=== PATIENT | female | born 1995 | race Caucasian/White ===

== ENCOUNTER 2022-05-25 08:01 | Emergency (ER) | payer SELFPAY ==
[2022-05-25 08:31] VITALS: BP 119/79; PULSE 78; RESP 18; TEMP 98.4; BMI 25.9
[2022-05-25 11:47] LABS: BASO % 0.5 % (0-2.0); EOS % 0.5 % (0-4.5); HEMATOCRIT 39.1 % (32.4-45.2); LYMPH % 30.6 % (8-40); MCH 28.9 pg (25.7-33.7); MCHC 33.4 g/dl (32.0-36.0); MEAN CELL VOLUME 86.5 fl (80-96); MEAN PLT VOLUME 7.8 fl (7.5-11.1); MONO % 7.4 % (3.8-10.2); PLATELET COUNT 280 10^3/uL (134-434); RBC 4.52 M/mm3 (3.60-5.2); RDW 14.1 % (11.6-15.6); WHITE BLOOD COUNT 6.7 K/mm3 (4.0-10.0)
[2022-05-25 12:06] LABS: CHLORIDE 108 mmol/L (98-107); SODIUM 139 mmol/L (136-145)
[2022-05-25 12:13] LABS: ANION GAP 8 MMOL/L (8-16); BLOOD UREA NITROGEN 13.5 mg/dL (7-18); CO2 23 mmol/L (21-32); GLUCOSE,RANDOM 79 mg/dL (74-106)
[2022-05-25 12:17] LABS: CREATININE 0.6 mg/dL (0.55-1.3); SGOT/AST 20 U/L (15-37); SGPT/ALT 20 U/L (13-61); TOT PROT 7.9 g/dl (6.4-8.2)
[2022-05-25 12:19] LABS: BILIRUBIN,TOTAL 0.4 mg/dL (0.2-1)
[2022-05-25 12:20] LABS: ALK PHOS 55 U/L (45-117)
[2022-05-25 12:35] LABS: SYPHILIS W/ RPR CONF NON-REACTIVE (NONREACTIVE)
[2022-05-25] MEDS ORDERED: FLUCONAZOLE 150 MG TABLET PO ONE ×2 (12:39→13:11)
[2022-05-25 13:03] LABS: HIV INTERPRETATION NEGATIVE (NEGATIVE)
[2022-05-25] MEDS ORDERED: FLUCONAZOLE 100 MG TABLET (UD) ONE (13:08)
[2022-05-25 13:23] LABS: EPI CELLS 11 /uL (0-25.1); HYALINE CASTS 1 /uL (0-3.1); PH,URINE 5.5 (5.0-8.0); URINE APPEARANCE CLEAR; URINE BACTERIA 982 /uL (0-1359); URINE BILIRUBIN NEGATIVE (NEGATIVE); URINE COLOR YELLOW; URINE GLUCOSE (UA) NEGATIVE (NEGATIVE); URINE KETONE 1+ (NEGATIVE); URINE LEUK ESTERASE 1+ (NEGATIVE); URINE NITRITE NEGATIVE (NEGATIVE); URINE PROTEIN NEGATIVE (NEGATIVE); URINE RBC 3 /uL (0-23.9); URINE UROBILINOGEN 0.2 mg/dL (0.2-1.0); URINE WBC 40 /uL (0-25.8)
[2022-05-25] MEDS ORDERED: CEPHALEXIN MONOHYDRATE 500 MG CAPSULE (UD) PO ONE (13:56)
[2022-05-25] MEDS ORDERED: CEPHALEXIN MONOHYDRATE 500 MG CAPSULE (UD) ONE (14:18)
== END 2022-05-25 14:32 | disposition home or self-care (01) ==
LOC: JER 08:01
DX: B37.3 Candidiasis of vulva and vagina (principal); N30.90 Cystitis, unspecified without hematuria
CPT/HCPCS: 36415; 80053; 81003; 84702; 85025; 86780; 86850; 86900; 86901; 87070; 87086; 87205; 87389; 87491; 87591; 99283-25

== ENCOUNTER 2022-08-27 21:22 | Emergency (ER) | payer OTHER ==
[2022-08-27 21:33] VITALS: RESP 18; TEMP 98.8; BMI 22.6
[2022-08-27] MEDS ORDERED: ACETAMINOPHEN 1000 MG/100 ML BAG IVPB ONE (22:20)
[2022-08-27] MEDS ORDERED: MAG HYDROX/AL HYDROX/SIMETH -MYLANTA- ORAL SUSPENSION PO ONE (22:20)
[2022-08-27] MEDS ORDERED: FAMOTIDINE 20 MG/50 ML IVPB 20 MG/50 ML MG IVPB ONE ×2 (22:20→22:54)
[2022-08-27] MEDS ORDERED: SUCRALFATE 1 GM TABLET (FP) PO ONE (22:20)
[2022-08-27] MEDS ORDERED: MAG HYDROX/AL HYDROX/SIMETH 30 ML UNIT-DOSE CUP ONE (22:54)
[2022-08-27] MEDS ORDERED: SUCRALFATE 1 GM TABLET (FP) ONE (22:54)
[2022-08-27] MEDS ORDERED: ACETAMINOPHEN INJECTION 100 ML IVPB ONE (22:54)
[2022-08-27 23:08] LABS: EPI CELLS 19 /uL (0-25.1); HYALINE CASTS 0 /uL (0-3.1); PH,URINE 7.5 (5.0-8.0); URINE APPEARANCE CLEAR; URINE BACTERIA 250 /uL (0-1359); URINE BILIRUBIN NEGATIVE (NEGATIVE); URINE COLOR YELLOW; URINE GLUCOSE (UA) NEGATIVE (NEGATIVE); URINE KETONE NEGATIVE (NEGATIVE); URINE LEUK ESTERASE 3+ (NEGATIVE); URINE NITRITE NEGATIVE (NEGATIVE); URINE PROTEIN NEGATIVE (NEGATIVE); URINE RBC 3 /uL (0-23.9); URINE UROBILINOGEN 0.2 mg/dL (0.2-1.0); URINE WBC 98 /uL (0-25.8)
[2022-08-27 23:11] LABS: INR 0.98 (0.83-1.09); PROTHROMBIN TIME (PATIENT) 11.3 SEC (9.7-13.0)
[2022-08-27 23:14] LABS: ACTIVATED PTT 24.7 SECONDS (25.2-36.5)
[2022-08-27 23:19] LABS: BASO % 0.3 % (0-2.0); CALCIUM 9.5 mg/dL (8.5-10.1); EOS % 0.5 % (0-4.5); HEMATOCRIT 30.8 % (32.4-45.2); HEMOGLOBIN 10.6 GM/dL (10.7-15.3); LYMPH % 26.6 % (8-40); MCH 29.1 pg (25.7-33.7); MCHC 34.3 g/dl (32.0-36.0); MEAN CELL VOLUME 84.8 fl (80-96); MEAN PLT VOLUME 7.6 fl (7.5-11.1); MONO % 8.9 % (3.8-10.2); NEUT % 63.7 % (42.8-82.8); PLATELET COUNT 250 10^3/uL (134-434); RBC 3.64 M/mm3 (3.60-5.2); RDW 14.5 % (11.6-15.6); WHITE BLOOD COUNT 9.8 K/mm3 (4.0-10.0)
[2022-08-27 23:20] LABS: ALBUMIN 3.3 g/dl (3.4-5.0)
[2022-08-27 23:23] LABS: CREATININE 0.5 mg/dL (0.55-1.3)
[2022-08-27 23:24] LABS: BILIRUBIN,TOTAL 0.2 mg/dL (0.2-1); TOT PROT 6.7 g/dl (6.4-8.2)
[2022-08-27] MEDS ORDERED: CEPHALEXIN MONOHYDRATE 500 MG CAPSULE (UD) PO ONE (23:34)
[2022-08-27 23:45] LABS: BLOOD UREA NITROGEN 8.8 mg/dL (7-18)
[2022-08-28] MEDS ORDERED: LACTATED RINGERS SOLUTION 1000 ML INFUS.BAG IV ONE (01:55)
[2022-08-28] MEDS ORDERED: CEPHALEXIN MONOHYDRATE 500 MG CAPSULE (UD) ONE (03:33)
[2022-08-28 03:39] VITALS: BP 111/55; PULSE 78
== END 2022-08-28 04:07 | disposition home or self-care (01) ==
LOC: JER 21:22
PROC: 3E0333Z Introduction of Anti-inflammatory into Peripheral Vein, Percutaneous Approach (ICD-10-PCS; principal; 2022-08-27)
PROC: 3E033GC Introduction of Other Therapeutic Substance into Peripheral Vein, Percutaneous Approach (ICD-10-PCS; 2022-08-27)
DX: R51.9 Headache, unspecified (principal); R07.89 Other chest pain; N39.0 Urinary tract infection, site not specified
CPT/HCPCS: 36415; 76816-TC; 80053; 81003; 84484; 84702; 85025; 85610; 85730; 86850; 86900; 86901; 87086; 93005; 93010; 99285-25

== ENCOUNTER 2023-02-02 20:40 | Inpatient (IN) | payer OTHER ==
[2023-02-02] MEDS ORDERED: ELECTROLYTE-148 SOLN 1,000 ML IV SCH (21:45)
[2023-02-02] MEDS ORDERED: AMPICILLIN - 2 GM in SODIUM CHLORIDE 100 ML IVPB ONE (21:46)
[2023-02-02 22:14] VITALS: BMI 29.9
[2023-02-02 22:16] LABS: BASO % 0.2 % (0-2.0); EOS % 0.2 % (0-4.5); HEMATOCRIT 35.2 % (32.4-45.2); HEMOGLOBIN 11.9 GM/dL (10.7-15.3); LYMPH % 19.8 % (8-40); MCH 28.9 pg (25.7-33.7); MCHC 33.9 g/dl (32.0-36.0); MEAN CELL VOLUME 85.3 fl (80-96); MONO % 7.6 % (3.8-10.2); NEUT % 72.2 % (42.8-82.8); PLATELET COUNT 217 10^3/uL (134-434); RBC 4.13 M/mm3 (3.60-5.2); RDW 13.5 % (11.6-15.6); RETICULOCYTES 1.52 % (0.5-1.5)
[2023-02-02] MEDS ORDERED: AMPICILLIN SODIUM 2 GM VIAL ONE (22:16)
[2023-02-02] MEDS ORDERED: PROMETHAZINE HCL 25 MG/1 ML VIAL IVPB ONE (22:20)
[2023-02-02] MEDS ORDERED: BUTORPHANOL TARTRATE 1 MG/ML VIAL IVPB ONE (22:20)
[2023-02-02 22:41] LABS: POTASSIUM 4.4 mmol/L (3.5-5.1)
[2023-02-02 22:43] LABS: CALCIUM 9.2 mg/dL (8.5-10.1)
[2023-02-02 22:44] LABS: BLOOD UREA NITROGEN 7.2 mg/dL (7-18)
[2023-02-02] MEDS ORDERED: BUTORPHANOL TARTRATE 1 MG/ML VIAL ONE (22:45)
[2023-02-02 22:46] LABS: URIC ACID 5.1 mg/dL (2.6-7.2)
[2023-02-02] MEDS ORDERED: PROMETHAZINE HCL 25 MG/1 ML VIAL ONE (22:46)
[2023-02-02 22:47] LABS: CREATININE 0.7 mg/dL (0.55-1.3)
[2023-02-03 00:20] LABS: INR 0.86 (0.83-1.09)
[2023-02-03 00:23] LABS: ACTIVATED PTT 24.9 SECONDS (25.2-36.5)
[2023-02-03] MEDS ORDERED: AMPICILLIN - 1 GM in SODIUM CHLORIDE 100 ML IVPB SCH (01:00)
[2023-02-03] MEDS ORDERED: AMPICILLIN SODIUM 1 GM VIAL ONE (01:08)
[2023-02-03] MEDS ORDERED: TERBUTALINE SULFATE 1 MG/1 ML VIAL SQ ONE ×2 (01:29→01:59)
[2023-02-03] MEDS ORDERED: OXYTOCIN 20 UNITS in 0.9% NS 20 UNIT/1,000 ML INFUS.BAG IV ONE (01:37)
[2023-02-03] MEDS ORDERED: LIDOCAINE HCL 1% PRESERVATIVE FREE - 30ML VIAL ONE (01:39)
[2023-02-03] MEDS ORDERED: BISACODYL 10 MG SUPP.RECT RC PRN (03:15)
[2023-02-03] MEDS ORDERED: OXYTOCIN 20 UNITS in 0.9% NS 20 UNIT/1,000 ML INFUS.BAG IV SCH (03:15)
[2023-02-03] MEDS ORDERED: WITCH HAZEL 50% (TUCKS) 40 PAD/JAR PAD TP PRN (03:15)
[2023-02-03] MEDS ORDERED: oxyCODONE HCL 5 MG TABLET PO PRN ×2 (03:15→03:16)
[2023-02-03] MEDS ORDERED: BENZOCAINE 20% 57 GM BOTTLE TP PRN (03:15)
[2023-02-03] MEDS ORDERED: BENZOCAINE 28 GM HEMORRHOIDAL OINTMENT TP PRN (03:15)
[2023-02-03] MEDS ORDERED: METHYLERGONOVINE MALEATE 0.2 MG/1 ML AMP IM PRN (03:15)
[2023-02-03 04:03] LABS: CORD HCO3 26.5 mmHg (20-29); CORD PCO2 72.1 mmHg (30-78); CORD pH 7.183 (7.14-7.44)
[2023-02-03 04:05] LABS: CORD BASE EXCESS -4.8 mmol/L (0-2); CORD HCO3 21.5 mmHg (20-29); CORD PCO2 43.7 mmHg (30-78); CORD pH 7.309 (7.14-7.44)
[2023-02-03] MEDS: IBUPROFEN 600 MG TABLET (FP) PO PRN ×3 (07:25→16:06)
[2023-02-03] MEDS: DOCUSATE SODIUM 100 MG CAPSULE (FP) PO SCH ×2 (09:26→21:23)
[2023-02-03] MEDS: ACETAMINOPHEN 325 MG TABLET (FP) PO PRN (19:44)
[2023-02-04] MEDS: IBUPROFEN 600 MG TABLET (FP) PO PRN ×5 (00:27→20:29)
[2023-02-04 08:19] LABS: BASO % 0.2 % (0-2.0); EOS % 0.4 % (0-4.5); HEMOGLOBIN 9.4 GM/dL (10.7-15.3); LYMPH % 18.5 % (8-40); MCH 29.6 pg (25.7-33.7); MCHC 33.7 g/dl (32.0-36.0); MEAN PLT VOLUME 9.4 fl (7.5-11.1); MONO % 6.3 % (3.8-10.2); NEUT % 74.6 % (42.8-82.8); PLATELET COUNT 185 10^3/uL (134-434); RBC 3.18 M/mm3 (3.60-5.2); RDW 13.5 % (11.6-15.6); WHITE BLOOD COUNT 12.8 K/mm3 (4.0-10.0)
[2023-02-04] MEDS: DOCUSATE SODIUM 100 MG CAPSULE (FP) PO SCH ×2 (09:36→22:04)
[2023-02-04] MEDS: ACETAMINOPHEN 325 MG TABLET (FP) PO PRN ×2 (11:26→23:47)
[2023-02-04] MEDS ORDERED: SENNOSIDES/DOCUSATE COMBO (SENNA PLUS) TABLET (UD) PO PRN (22:00)
[2023-02-04 22:46] VITALS: RESP 17
[2023-02-05] MEDS: IBUPROFEN 600 MG TABLET (FP) PO PRN ×2 (05:01→12:04)
[2023-02-05 08:14] VITALS: BP 124/85; PULSE 82; TEMP 98
[2023-02-05] MEDS: ACETAMINOPHEN 325 MG TABLET (FP) PO PRN (09:10)
[2023-02-05] MEDS: DOCUSATE SODIUM 100 MG CAPSULE (FP) PO SCH (09:27)
== END 2023-02-05 15:00 | disposition home or self-care (01) | DRG 560 ==
LOC: JDEL 20:40 → JLDR 21:25 → J3W 02-03 04:26
PROVIDERS: ADMIT Obstetrics & Gynecology; ATTEND Obstetrics & Gynecology
PROC: 10E0XZZ Delivery of Products of Conception, External Approach (ICD-10-PCS; principal; 2023-02-03)
PROC: 0W8NXZZ Division of Female Perineum, External Approach (ICD-10-PCS; 2023-02-03)
DX: O99.824 Streptococcus B carrier state complicating childbirth (principal); O69.81X0 Labor and delivery complicated by cord around neck, without compression, not applicable or unspecified; O34.63 Maternal care for abnormality of vagina, third trimester; Q52.10 Doubling of vagina, unspecified; Z3A.39 39 weeks gestation of pregnancy; Z37.0 Single live birth
CPT/HCPCS: 36415; 36600; 59025; 80048; 82803; 82977; 83010; 84450; 84460; 84550; 85025; 85045; 85610; 85730; 86780; 86850; 86900; 86901

== ENCOUNTER 2023-07-27 08:32 | Emergency (ER) | payer OTHER ==
[2023-07-27 08:40] VITALS: BP 122/84; PULSE 72; RESP 16; TEMP 98.4; BMI 26.4
[2023-07-27] MEDS ORDERED: ACETAMINOPHEN 500 MG TABLET (FP) PO ONE (09:24)
[2023-07-27] MEDS ORDERED: ACETAMINOPHEN 500 MG TABLET (FP) ONE (09:37)
== END 2023-07-27 11:25 | disposition home or self-care (01) ==
LOC: JERFT 08:32
DX: M25.511 Pain in right shoulder (principal); V09.20XA Pedestrian injured in traffic accident involving unspecified motor vehicles, initial encounter; Y92.410 Unspecified street and highway as the place of occurrence of the external cause
CPT/HCPCS: 73030-TC-RT-FY; 99283-25

== ENCOUNTER 2023-09-11 21:24 | Emergency (ER) | payer OTHER ==
[2023-09-11 21:28] VITALS: BP 120/82; PULSE 78; RESP 18; TEMP 98; BMI 27.0
[2023-09-11] MEDS ORDERED: ACETAMINOPHEN 1000 MG/100 ML BAG IVPB ONE (22:19)
[2023-09-11] MEDS ORDERED: METOCLOPRAMIDE HCL INJECTION 10 MG/2 ML VIAL IVPUSH ONE (22:19)
[2023-09-11] MEDS ORDERED: SODIUM CHLORIDE 1,000 ML IV SCH (22:30)
[2023-09-11] MEDS ORDERED: METOCLOPRAMIDE HCL INJECTION 10 MG/2 ML VIAL ONE (22:32)
[2023-09-11] MEDS ORDERED: ACETAMINOPHEN INJECTION 100 ML IVPB ONE (22:33)
[2023-09-11 23:09] LABS: BASO % 0.4 % (0-2.0); EOS % 0.2 % (0-4.5); HEMATOCRIT 34.9 % (32.4-45.2); HEMOGLOBIN 11.6 GM/dL (10.7-15.3); LYMPH % 30.1 % (8-40); MCH 27.7 pg (25.7-33.7); MCHC 33.2 g/dl (32.0-36.0); MEAN CELL VOLUME 83.2 fl (80-96); MEAN PLT VOLUME 7.5 fl (7.5-11.1); MONO % 6.1 % (3.8-10.2); NEUT % 63.2 % (42.8-82.8); PLATELET COUNT 289 10^3/uL (134-434); RDW 14.1 % (11.6-15.6); WHITE BLOOD COUNT 8.2 K/mm3 (4.0-10.0)
[2023-09-11 23:10] LABS: PH,URINE 5.5 (5.0-8.0); URINE APPEARANCE CLEAR; URINE BILIRUBIN NEGATIVE (NEGATIVE); URINE COLOR YELLOW; URINE GLUCOSE (UA) NEGATIVE (NEGATIVE); URINE KETONE TRACE (NEGATIVE); URINE LEUK ESTERASE NEGATIVE (NEGATIVE); URINE NITRITE NEGATIVE (NEGATIVE); URINE PROTEIN NEGATIVE (NEGATIVE); URINE UROBILINOGEN 0.2 mg/dL (0.2-1.0)
[2023-09-11 23:15] LABS: HCG,QUALITATIVE URINE Negative
[2023-09-11 23:23] LABS: POTASSIUM 3.8 mmol/L (3.5-5.1)
[2023-09-11 23:26] LABS: ALBUMIN 3.8 g/dl (3.4-5.0); BLOOD UREA NITROGEN 13.6 mg/dL (7-18); CALCIUM 9.3 mg/dL (8.5-10.1)
[2023-09-11 23:29] LABS: CREATININE 0.7 mg/dL (0.55-1.3)
[2023-09-11 23:31] LABS: BILIRUBIN,TOTAL 0.3 mg/dL (0.2-1); TOT PROT 7.5 g/dl (6.4-8.2)
== END 2023-09-12 02:12 | disposition home or self-care (01) ==
LOC: JER 21:24
PROC: 3E033NZ Introduction of Analgesics, Hypnotics, Sedatives into Peripheral Vein, Percutaneous Approach (ICD-10-PCS; principal; 2023-09-11)
PROC: 3E033GC Introduction of Other Therapeutic Substance into Peripheral Vein, Percutaneous Approach (ICD-10-PCS; 2023-09-11)
PROC: 3E0337Z Introduction of Electrolytic and Water Balance Substance into Peripheral Vein, Percutaneous Approach (ICD-10-PCS; 2023-09-11)
DX: G44.209 Tension-type headache, unspecified, not intractable (principal); R11.10 Vomiting, unspecified; B34.9 Viral infection, unspecified; Z20.822 Contact with and (suspected) exposure to COVID-19
CPT/HCPCS: 0241U-QW; 36415; 80053; 81003; 84703; 85025; 87651; 99284-25; J0131

== ENCOUNTER 2024-06-01 16:46 | Emergency (ER) | payer OTHER ==
[2024-06-01 16:58] VITALS: BP 107/71; PULSE 93; RESP 20; TEMP 98.6; BMI 25.7
[2024-06-01] MEDS ORDERED: IBUPROFEN 600 MG TABLET (FP) PO ONE (17:49)
[2024-06-01] MEDS: IBUPROFEN 600 MG TABLET (FP) PO ONE (17:50)
== END 2024-06-01 19:46 | disposition home or self-care (01) ==
LOC: JERFT 16:46
DX: S80.212A Abrasion, left knee, initial encounter (principal); M25.551 Pain in right hip; M25.511 Pain in right shoulder; W18.39XA Other fall on same level, initial encounter
CPT/HCPCS: 73030-TC-RT-FY; 73562-TC-LT-FY; 99284-25